=== PATIENT | male | born 1995 | race Asian ===

== ENCOUNTER 2017-01-06 11:02 | Emergency (ER) | payer OTHER ==
[~2017-01-06] VITALS: Wt 75.5 kg
--- NOTE | 2017-01-06 11:37 | RADRPT ---
PROCEDURE: XR Chest. CLINICAL INDICATION: Chest pain TECHNIQUE: Chest PA. COMPARISON: No comparison available. FINDINGS: The mediastinal structures are unremarkable. The heart is normal in size and configuration. The pu lmonary vascularity is normal. The lung cowan are unremarkable. No consolidation is identified. The pleural spaces are unremarkable. The axial skeleton is unremarkable. IMPRESSION: No active intrathoracic disease. RPTAT: [facility] .Silvestre Olivas MD, MD Date Time Electronically viewed and signed by .Silvestre Olivas MD, on 01/06/2017 11:37 .B/
[2017-01-06 11:50] LABS: BASOPHILS % 0.4 % (0.0-2.0); EOSINOPHILS # 0.1 10^3/ul (0.0-0.5); EOSINOPHILS % 1.5 % (0.0-7.0); HEMATOCRIT 46.4 % (42.0-52.0); HEMOGLOBIN 15.6 g/dl (14.0-18.0); LYMPHOCYTES # 2.4 10^3/ul (0.8-2.9); LYMPHOCYTES % 34.9 % (18.0-55.0); MEAN CORPUSCULAR HEMOGLOBIN 28.7 pg (29.0-33.0); MEAN CORPUSCULAR HGB CONC 33.7 g/dl (32.0-37.0); MEAN PLATELET VOLUME 8.5 fl (7.4-10.4); MONOCYTE # 0.5 10^3/ul (0.3-0.9); NEUTROPHIL # 3.8 10^3/ul (1.6-7.5); NEUTROPHILS % 56.2 % (30.0-74.0); PLATELET COUNT 323 10^3/UL (140-440); RED BLOOD COUNT 5.46 10^6/ul (4.70-6.10); RED CELL DISTRIBUTION WIDTH 13.3 % (11.5-14.5); UNCORRECTED WBC 6.8 10^3/ul (4.8-10.8); WHITE BLOOD COUNT 6.8 10^3/ul (4.8-10.8)
[2017-01-06 11:52] LABS: CONDITION 1
[2017-01-06 11:59] LABS: CHLORIDE 102 mmol/L (97-110); POTASSIUM 4.5 mmol/L (3.5-5.1); SODIUM 144 mmol/L (135-144)
[2017-01-06 12:02] LABS: ANION GAP 20 (8-16); BLOOD UREA NITROGEN 11 mg/dl (7-20); CARBON DIOXIDE 27 mmol/L (21-31); CREATININE 0.93 mg/dl (0.61-1.24); GLUCOSE 101 mg/dl (70-220)
[2017-01-06 12:07] LABS: INR 1.03; PROTIME 13.5 Sec (12.2-14.2); PT RATIO 1.1
[2017-01-06 12:08] LABS: PARTIAL THROMBOPLASTIN TIME 29.8 Sec (25.0-35.0)
[2017-01-06 12:17] LABS: TROPONIN-I < 0.012 ng/ml (0.00-0.12)
--- NOTE | 2017-01-06 12:20 | ERD ---
ER Documentation Chief Complaint Date/Time DATE: 01/06/17 TIME: 12:19 Chief Complaint SYNCOPAL EPISODE WHILE AT GYM YESTERDAY. NO PAIN, NEURO INTACT HPI This is a 21-year-old male who presents to the emergency room for evaluation of a syncopal episode while at the gym yesterday. Patient does state that he was working out and lifting weights and was straining himself. He does state that he felt himself about to pass out and momentarily lost consciousness. The patient denied any chest pain but does state he felt mild palpitations before he passed out. He woke up today with no problems, no chest pain, no shortness of breath and came to the ER today for evaluation. ROS All systems reviewed and are negative except as per history of present illness. PMhx/Soc Medical and Surgical Hx: pt denies Medical Hx, pt denies Surgical Hx Hx Alcohol Use: No Hx Substance Use: No Hx Tobacco Use: No Smoking Status: Never smoker Physical Exam Vitals Vital Signs Date Time Temp Pulse Resp B/P Pulse Ox O2 Delivery O2 Flow Rate FiO2 01/06/17 11:06 98.8 95 20 136/84 98 Physical Exam INITIAL VITAL SIGNS: Reviewed by me GENERAL: The patient is well developed and appropriate for usual state of health in no apparent distress HEENT: Pupils equal, round, and reactive to light. EOMI. There is no scleral icterus. NECK: C-spine is soft and supple, there is no meningismus. There is no cervical lymphadenopathy. LUNGS: Clear to auscultation bilaterally. There are no rales, wheezes or rhonchi. HEART: Regular rate and rhythm, no murmurs, clicks, rubs or gallops. ABDOMEN: Soft, non-tender, non-distended. There are bowel sounds in all four quadrants. No rebound or guarding. EXTREMITIES: There is no peripheral cyanosis or edema. No focal swelling or erythema. NEUROLOGICAL: The patient moves all four extremities with 5/5 strength. Cranial nerves II - XII are intact. Normal gait. Alert and oriented SKIN: There is no apparent rash or petechiae. HEME/LYMPHATIC: There is no evidence of excessive bruising or lymphedema. PSYCHIATRIC: The patient does not appear anxious or depressed. Result Diagram: 01/06/17 1140 01/06/17 1140 Results 24 hrs Laboratory Tests Test 01/06/17 11:40 Activated Partial Thromboplast Time 29.8Sec Anion Gap 20 Basophils # 0.010^3/ul Basophils % 0.4% Blood Morphology Comment Blood Urea Nitrogen 11mg/dl Calcium Level 10.0mg/dl Carbon Dioxide Level 27mmol/L Chloride Level 102mmol/L Creatinine 0.93mg/dl Eosinophils # 0.110^3/ul Eosinophils % 1.5% Glucose Level 101mg/dl Hematocrit 46.4% Hemoglobin 15.6g/dl INR International Normalized Ratio 1.03 Lymphocytes # 2.410^3/ul Lymphocytes % 34.9% Mean Corpuscular Hemoglobin 28.7pg Mean Corpuscular Hemoglobin Concent 33.7g/dl Mean Corpuscular Volume 85.0fl Mean Platelet Volume 8.5fl Monocytes # 0.510^3/ul Monocytes % 7.0% Neutrophils # 3.810^3/ul Neutrophils % 56.2% Nucleated Red Blood Cells # 0.010^3/ul Nucleated Red Blood Cells % 0.0/100WBC Platelet Count 52875^3/UL Potassium Level 4.5mmol/L Prothrombin Time 13.5Sec Prothrombin Time Ratio 1.1 Red Blood Count 5.4610^6/ul Red Cell Distribution Width 13.3% Sodium Level 144mmol/L Troponin I < 0.012ng/ml White Blood Count 6.810^3/ul Procedures/MDM EKG: Rate/Rhythm: [Normal Sinus Rhythm] QRS, ST, T-waves: [No changes consistent w/ acute ischemia] Impression: [No evidence of ischemia or arrhythmia] Chest X-ray 1V Interpreted by me: Soft Tissue: No acute abnormalities Bones: No acute abnormalities Mediastinum/Cardiac Silhouette/Lungs: [No acute abnormalities] This 21-year-old male presents to the ER for evaluation of a syncopal episode while working out yesterday. This patient's history physical exam is consistent with acute vasovagal syncope likely secondary to a Valsalva while working out. This patient's EKG showed sinus tachycardia. His repeat vital signs show a heart rate of 78 bpm. He is not hypoxic, he is hemodynamically stable. Answer questions appropriately, no acute distress with no chest pain or shortness of breath. He is ambulating in the emergency room without difficulty and has a negative troponin, nonischemic EKG and normal chest x-ray. This patient has a heart score of 0 and will be discharged home with instructions to follow-up with his primary care physician. Departure Diagnosis: Primary Impression: Syncope Condition: Stable JACOBY BATRES DO Jan 06, 2017 12:20
== END 2017-01-06 14:30 | disposition home or self-care (01) ==
LOC: E/R 11:02
DX: R55 Syncope and collapse (principal)
CPT/HCPCS: 36415; 71010; 80048; 84484; 85025; 85610; 85730; 93005; Z7502